=== PATIENT | female | born 1985 | race Caucasian/White ===

== ENCOUNTER 2018-09-04 14:59 | Emergency (ER) | payer OTHER, SELFPAY ==
[2018-09-04 15:13] VITALS: BP 121/46
--- NOTE | 2018-09-04 15:20 | ER.PDOC ---
General Chief Complaint: Requesting Medical Care Stated Complaint: RIGHT ARM HUMAN BITE Time seen by MD: 15:15 Source: patient Exam Limitations: no limitations History of Present Illness Onset: just prior to arrival Where: work Animal Immunizations: unknown Animal Disposition: Animal Known Context of Attack: approached animal Severity of Injury: bitten Injury Location: upper extremity Past Medical History Medical History: no pertinent history Reviewed Nursing Reviewed: Vital Signs, Abn. Noted Review of Systems All Other Systems: Reviewed and Negative Physical Exam General Appearance: alert, no distress Skin: puncture, abrasion Neuro/Vascular/Tendon: no vascular compromise, sensation nml, oriented x3, nml ROM, CN's nml as tested Psych: mood/affect nml HEENT: atraumatic, PERRL, eye lids/conjun nml, ENT nml external inspect. Neck: uninjured, nml inspection Resp/CVS: chest non-tender, breath sounds nml, heart sounds nml, reg. rate & rhythm Abdomen: nml inspection, non-tender Back: nml inspection Extremities: nml inspection, no infection, ROM nml, see diagram 1 - PUNCTURE Departure Time of Disposition: 16:00 Disposition: 01 HOME, SELF-CARE Impression: Primary Impression: Human bite Condition: Stable Referrals: PCP,UNKNOWN (PCP) PRIMARY CARE PROVIDER Duration or Time Spent with Pa: DEONTE ROMERO MD Sep 04, 2018 15:20
--- NOTE | 2018-09-04 15:25 | NUR ---
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 STATED "FEELS LIKE A SORE BRUISE" STATED THAT [facility] CLEANSED SITE WITH ALCOHOL AND BETADINE. TRIAGE DONE. DR. LARKIN AT BEDSIDE EXAMINING PATIENT.
[2018-09-04] MEDS ORDERED: BOOSTRIX TDAP IM ONE ×2 (15:30→15:42)
--- NOTE | 2018-09-04 15:30 | NUR ---
ARRIVAL PATIENT ARRIVED TO UNIT. NO DISTRESS NOTED. TRIAGE DONE. DR. LARKIN AT BEDSIDE ASSESSING PATIENT. PATIENT TO RECEIVE A TETANUS VACCINE BEFORE DISCHARGE.
--- NOTE | 2018-09-04 16:03 | NUR ---
DISCHARGE DISCHARGE INSTRUCTION GIVEN, PATIENT VOICED UNDERSTANDING. PATIENT AMBULATED OUT OF UNIT. GAIT STEADY AND BALANCED. NO DISTRESS NOTED.
[2018-09-04 16:06] VITALS: BP 121/46
== END 2018-09-04 16:00 | disposition home or self-care (01) ==
LOC: ER 14:59
DX: S41.151A Open bite of right upper arm, initial encounter (principal); Y04.1XXA Assault by human bite, initial encounter; Y93.89 Activity, other specified; Y92.69 Other specified industrial and construction area as the place of occurrence of the external cause; Y99.0 Civilian activity done for income or pay
CPT/HCPCS: 90471; 90715; 99283

== ENCOUNTER 2024-01-10 15:03 | Emergency (ER) | payer SELFPAY ==
[~2024-01-10] VITALS: Ht 154.9 cm; Wt 55.3 kg
[2024-01-10 15:14] VITALS: BP 137/92; PULSE 92; RESP 18; TEMP 98.5; O2SAT 100
[2024-01-10] MEDS ORDERED: TORADOL ONE (15:35)
[2024-01-10] MEDS ORDERED: AUGMENTIN 875MG ONE (15:36)
[2024-01-10] MEDS ORDERED: NORCO 5MG PO ONE (15:36)
[2024-01-10 15:40] VITALS: BP 130/80; PULSE 98; RESP 18; O2SAT 98
[2024-01-10] MEDS: AUGMENTIN 875MG PO STA (15:42)
[2024-01-10] MEDS: TORADOL IM STA (15:42)
[2024-01-10] MEDS: NORCO 5MG PO STA (15:42)
== END 2024-01-10 15:40 | disposition home or self-care (01) ==
LOC: ER 15:03
DX: K04.7 Periapical abscess without sinus (principal)
CPT/HCPCS: 99283; 96372; J1885